=== PATIENT | female | born 1940 | race Caucasian/White ===

== ENCOUNTER 2017-01-07 13:38 | Observation (INO) | payer MEDICARE, OTHER ==
[~2017-01-07] VITALS: Ht 165.1 cm; Wt 66.5 kg
--- NOTE | ~2017-01-07 | CST ---
Cardiac Perfusion Imaging Demographics Patient Name ADRIA Bishop Gender Female Patient Number [id number] Race Visit Number [id number] Ethnicity Corporate ID Room Number 412 Accession Number [id number] Height 65 inches Date of 1940 Weight 146 pounds Age 76 year(s) BSA 1.73 m Referring Physician Silvia Rodríguez MD BMI 24.3 kg/m Devon Butler Interpreting Physician [facility] Date of study 01/08/2017 King Bandar Nieves MD Supervising MD/MLP King Bandar Nieves MD NM Technologist Tab Rodriguez Ordering Physician Stress Karla Hallman model technician Stress ECG Reading King Bandar Nieves MD Nurse Alfonzo Shanks Physician Tracee Lamar The procedure was explained in detail to the patient. Risks, complications and alternative treatments were reviewed. Written consent was obtained. Procedure Procedure Type: Nuclear Stress Test:Exercise, Cardiac Study SF Procedure Start time: 01/08/2017 08:00 Indications: Chest pain. Conclusions Summary Perfusion Images: The overall quality of the study is good. Left ventricular cavity is noted to be normal on the stress and rest studies. There is no evidence of abnormal lung activity. The right ventricle is not visualized and cannot be assessed. Stress SPECT images and Rest SPECT images demonstrate homogenous tracer distribution throughout the myocardium except for a decrease uptake in the area involving the apical wall consistent with soft tissue attenuation. Gated SPECT imaging reveals normal myocardial thickening and wall motion. The left ventricular ejection fraction was calculated to be 46%. Impression ECG portion of stress test is clinically negative for ischemia by diagnostic criteria. Myocardial perfusion imaging is normal. The apical wall matched defect is consistent with soft tissue attenuation. Overall left ventricular systolic function was normal without regional wall motion abnormalities. There are no previous studies for comparison . The patient went into atrial fib during the test which reproduced her symptoms and appears to be the cause of the symptoms. Stress Protocols Resting ECG Normal sinus rhythm. Nonspecific ST-T wave changes. Resting HR:72 bpm Resting BP:158/80 mmHg Stress Protocol:Exercise Predicted HR: 145 bpm Test duration:06:00 min ECG Findings Normal sinus rhythm. Nonspecific ST-T wave changes. Atrial fibrillation. Complications Procedure complication: None. Stress Interpretation Appropriate hemodynamic response to exercise. No significant ST-T wave changes with exercise. EKG portion is negative for ischemia by diagnostic criteria. The [place] Treadmill score was 6 .This corresponds to a low risk stress test. Imaging Results Summed scores - Summed stress score: 1 - Summed rest score: 0 - Summed difference score: 1 Stress ejection Ejection fraction:46 % EDV :114 ml ESV :62 ml Stroke volume :52 ml LV mass :131 gr Imaging Protocols Rest Stress Isotope:Tc99m Myoview IV Isotope: Tc99m Myoview IV Isotope dose:10.5 mCi Isotope dose:31.9 mCi Date:01/08/2017 06:30 Date:01/08/2017 08:00 Technique: SPECT Technique: Gated Supine SPECT Supine IV remains in place after procedure. Scan Time:45-60 minutes post Scan Time:45-60 minutes post injection injection Procedure Medications - Metaprolol I.V. 2.5 mg. - Metaprolol I.V. 2.5 mg. Medications administered per verbal order and read back to physician prior to administration. Medical History Admission Data Admission date: 01/07/2017 Admission Time: 13:38 Hospital Status: Inpatient. Signatures
--- NOTE | ~2017-01-07 | ECH ---
Transthoracic Echocardiography Report (TTE) Demographics Patient Name JESUS COVINGTON Date of Study 01/07/2017 Patient Number [id number] Visit Number [id number] Date of 1940 Room Number 412 Accession Number [id number] Gender Female Age 76 year(s) Referring Silvia Rodríguez MD Melter Supervisor Oxygen Furnace Zully James [facility] Physician Devon Butler Physician Interpreting Silvia Rodríguez MD Uniformer Physician Supervising Ordering Physician Devon Butler MD/P Nurse Stress Garnett Mechanic Conclusions Summary Technically fair exam. The estimated left ventricular ejection fraction is 60-65%. The left atrium is moderately dilated by LA volume index measurement. Mild-moderate mitral regurgitation by color Doppler. There is mild aortic regurgitation by color Doppler. . Mild tricuspid regurgitation by color Doppler. Estimated pulmonary pressures within normal limits. Mild pulmonic valve regurgitation by color Doppler. Procedure Type of Study TTE procedure Procedure Date Date: 01/07/2017 Start: 03:21 PM Technical Quality: Adequate visualization Indications:Chest pain and Dyspnea. Additional Indications:EKG changes Appropriate Use Criteria: 9 Height: 65 inches Weight: 146 pounds BSA: 1.73 m Rhythm: NSR HR: 67 bpm BP: 142/54 mmHg M-Mode/2D Measurements LV Diastolic Dimension: 5.15 cm LV Systolic Dimension: 3.82 cm LV Septum Diastolic: 0.64 cm LV PW Diastolic: 0.68 cm AO Root Dimension: 2.82 cm Cardiac Output: 2.15 l/min LA Dimension: 3.78 cm Cardiac Index: 1.24 l/min*m LA volume index: 47 ml/m LVOT: 1.62 cm RV Base: 3.18 cm LVOT VTI: 15.57 cm RV Mid: 2.02 cm LV Stroke volume: 32.08 ml RV Length: 5.27 cm LV Stroke volume index: 18.54 ml/m TAPSE: 1.55 cm TDI-S': 0.9 cm/s Doppler Measurements AV Peak Velocity: 1.08 m/s MV Peak E-Wave: 0.73 m/s AV Peak Gradient: 4.67 mmHg MV Peak A-Wave: 0.35 m/s AV Mean Gradient: 2.87 mmHg MV E/A Ratio: 2.09 LVOT Peak Velocity: 0.72 m/s MV P1/2t: 59.3 msec AV Area (Continuity):1.39 cm AV P1/2t: 553.7 msec MV Deceleration Time: 204.5 msec TR Velocity:2.51 m/s MV Area (PHT): 3.71 cm TR Gradient:25.11 mmHg PV Peak Velocity: 0.66 m/s Estimated RAP:5 mmHg PV Peak Gradient: 1.72 mmHg Estimated RVSP: 30 mmHg Estimated PASP: 30.11 mmHg RA Area: 14.86 cm Findings Left Ventricle The left ventricle is normal in size . Diastolic assessment reveals normal relaxation. Right Ventricle Normal right ventricle structure and function. Left Atrium The left atrium is moderately dilated by LA volume index measurement. Right Atrium Normal right atrial size. Mitral Valve Mild thickening of the mitral valve leaflets. Mild mitral annular calcification. Mild-moderate mitral regurgitation by color Doppler. Aortic Valve The aortic valve is mildly sclerotic. There is mild aortic regurgitation by color Doppler. Tricuspid Valve Normal appearing tricuspid valve. Mild tricuspid regurgitation by color Doppler. Estimated pulmonary pressures within normal limits. Pulmonic Valve Normal pulmonic valve structure and function. Mild pulmonic valve regurgitation by color Doppler. Pericardial Effusion No evidence of pericardial effusion. Miscellaneous Visualized portions of the aortic root and ascending aorta appear normal in size. Pleural Effusion No evidence of pleural effusion. Contractility Score LV regional wall motion:(0-Non visualized 1-Normal 2-Hypokinesis 3-Akinesis 4-Dyskinesis 5-Aneurysm) Signature
[2017-01-09] MEDS ORDERED: LIPITOR DPS20 MG PO (16:57)
[2017-01-09] MEDS ORDERED: COUMADIN5 MG PO (16:57)
[2017-01-09] MEDS ORDERED: CALTRATE-600 D600 MG PO (16:58)
[2017-01-09] MEDS ORDERED: COUMADIN7.5 MG PO (16:58)
[2017-01-09] MEDS ORDERED: OMEGA-3 DPS1000 MG PO (16:58)
[2017-01-09] MEDS ORDERED: METOPROLOL TART25 MG PO (16:59)
[2017-01-09] MEDS ORDERED: ASA CHILDREN'S81 MG PO (16:59)
[2017-01-09] MEDS ORDERED: THERA1 EACH PO (16:59)
[2017-01-09] MEDS ORDERED: TAMBOCOR100 MG PO (17:00)
--- NOTE | 2017-01-14 08:14 | HP ---
ADMIT: 01/07/2017 RM/LOC: 412 [facility] MR#: [id number] [address] [address] JESUS COVINGTON [address] [place] [address] History and Physical SEX: F AGE: 76 : 1940 DATE OF SERVICE: CHIEF COMPLAINT: Shortness of breath. HISTORY OF PRESENT ILLNESS: Leena is a very pleasant, 76-year-old female, who presented to my clinic today with the above complaints. The patient states that over the last month, she has been having increasing shortness of breath. She states that this started on the day when she was outside and gardening. She felt like she was very short of breath, tightness in her chest and she could not breathe. She has had a few more episodes like this lasting for 30 to 60 minutes at a time. She states that she goes inside and she breathes in some steam and that seems to help her symptoms. She has no history of asthma. She has no allergy-like symptoms at this time. She does endorse that she feels quite short of breath. Denies any chest pain. No nausea or vomiting. She does also note, however, she used to be an avid walker on her treadmill, but up to a month ago she had to stop this as she was becoming more short of breath and winded on her treadmill. She does note family history in her dad with heart disease. The patient is a nonsmoker. She has never had symptoms like this in the past. The patient had workup in my clinic with thoughts of potentially treating for respiratory issues and getting outpatient echo with stress test. However, she had an EKG done in the clinic, which showed significant T-wave inversions in the lateral leads. She had an EKG in 2014, which did not have this. Given these findings, she was admitted for further workup, management, and expedited cardiology evaluation. 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 MEDICATIONS: Include: 1. Atorvastatin 20 mg at bedtime. 2. Calcium 600 mg daily. 3. Fish oil 1200 mg daily. 4. Warfarin 5 mg on Saturday and and 7.5 mg on other days. ALLERGIES: NORFLEX. SOCIAL HISTORY: She does not smoke. Occasional alcohol use. No other drug use. Daily coffee consumption. She lives with her spouse. 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 Her daughter, Melinda Duvall, was here with her in clinic today. She is a full code. FAMILY HISTORY: Significant for heart disease in her father. REVIEW OF SYSTEMS: A 10-point review of systems obtained, per HPI otherwise negative. ADMIT: 01/07/2017 RM/LOC: 412 [facility] MR#: [id number] [address] [place] [id number] JESUS COVINGTON [address] [place] [address] History and Physical SEX: F AGE: 76 : 1940 PHYSICAL EXAMINATION: VITAL SIGNS: Blood pressure 124/60, pulse 68, respirations 16, and temperature afebrile at 98% room air. GENERAL: Alert and oriented x3. Does not appear in acute distress. HEENT: Pupils equal, round, and reactive. Extraocular muscles intact. Throat clear. Trachea is midline. HEART: Regular rate and rhythm. No murmurs. LUNGS: Clear to auscultation bilaterally with no wheezes or crackles. ABDOMEN: Soft, nontender, and nondistended. No organomegaly. EXTREMITIES: Without any significant edema. NEUROLOGIC: Cranial nerves II through XII are grossly intact. No focal deficits. LABORATORY DATA: BMP was normal with a creatinine of 0.95, potassium 4.5, sodium of 141. Her CK was 58. Her troponin was normal. Protime was 3.08. ASSESSMENT: Today, EKG was with multiple lateral leads with T-wave inversions. These are new from last EKG on February 21, 2015. ASSESSMENT/PLAN: 1. Dyspnea with possible acute coronary syndrome/anginal chest pains. 2. Abnormal EKG with new T-wave inversions lateral leads. 3. Hyperlipidemia. 4. History of stroke, on chronic Coumadin. 5. Osteoporosis with history of compression fractures. PLAN: We will admit the patient OPO for an expedited cardiac workup. Given her EKG findings, I think she should have Cardiology evaluation. Unable to get in their clinic today, but with EKG changes, we will rule out with serial enzymes and likely stress test in the morning versus cardiac catheterization. We will obtain echo. Last echo in 2013 was normal. Any changes will likely go straight to catheterization. I discussed the patient with Dr. Marcos Vega. He has agreed to see the patient over at the hospital. Discussed plan of care with the patient and her daughter, Melinda, and they are in agreement with this as well. The patient is a full code. Luke Osorio MD/ charbel JOB #: [id number] CC: Luke Osorio, Attending Physician Luke Osorio, Family Physician
--- NOTE | 2017-01-18 14:31 | CO ---
ADMIT: 01/07/2017 RM/LOC: 412 [facility] MR#: [id number] [address] [address] JESUS MENDOZA [address] [place] [address] Consultation SEX: F AGE: 76 : 1940 DATE OF CONSULTATION: 01/07/2017 ATTENDING PHYSICIAN: Luke Osorio CONSULTING PHYSICIAN: Jorge Vega MD REASON FOR CONSULTATION: Shortness of breath, abnormal EKG, and chest pain. HISTORY OF PRESENT ILLNESS: Ms. Mendoza is a 76-year-old white female who presented to her primary care physician's office today. We are asked to consult on at the request of Dr. Osorio for this above-mentioned problems. She noted ever since working out in the yard a few weeks ago, where she had an episode of some midsternal discomfort, tightness, and some shortness of breath. Since then, she has been waking up in the morning short of breath with a little bit of chest discomfort. She has not been walking on the treadmill like she normally does. She denies any orthopnea or PND. She denies any lower extremity edema, fever, chills, cough, or cold symptoms. She denies any weight gain or weight loss, nausea, or vomiting. PAST MEDICAL HISTORY: Includes: 1. Aortic insufficiency. 2. History of breast cancer. CURRENT MEDICATIONS: Include: 1. ProAir HFA. 2. Singulair 10 mg. 3. Coumadin as directed for history of prior TIA. 4. Atorvastatin 20 mg a day. 5. Aspirin 81 mg a day. ALLERGIES: INCLUDE NORFLEX. FAMILY HISTORY: Father with COPD and heart failure. No premature coronary disease. SOCIAL HISTORY: She is . She is fairly active. She states she walks on the treadmill. She is a nonsmoker and nondrinker. REVIEW OF SYSTEMS: A full 10-point review of systems was obtained and deemed to be negative except for the pertinently dictated positives in the HPI. PHYSICAL EXAMINATION: VITAL SIGNS: Stable. Her weight is unmeasured at this point in time. GENERAL: She is a pleasant, well-nourished, well-developed white female, in no acute distress. Alert and oriented x3. NECK: Shows brisk carotid upstrokes. No JVD or bruit. CHEST: Clear. HEART: Regular with soft systolic ejection murmur at the base. ABDOMEN: Soft. ADMIT: 01/07/2017 RM/LOC: 412 [facility] MR#: [id number] [address] [address] JESUS MENDOZA [address] [place] [address] Consultation SEX: F AGE: 76 : 1940 EXTREMITIES: Show no cyanosis, clubbing, or edema. MUSCULOSKELETAL: Normal. SKIN: Normal. NEUROLOGIC: Normal. She is alert and oriented x3. LABORATORY AND ANCILLARY DATA: Currently pending except for the EKG that shows T-wave inversion in her lateral leads. ASSESSMENT AND PLAN: 1. Shortness of breath. 2. Chest pain. 3. Aortic insufficiency. 4. Breast cancer history. 5. Abnormal electrocardiogram. She did notice symptoms after working in the yard last week, somewhat suspicious. The EKG does show questionable ischemic changes. We will trend the enzymes and her EKGs as well as check an echocardiogram. If any of these come back abnormal than the current EKG findings, we will proceed with cardiac catheterization. If they do remain normal, we will consider doing a stress test in the morning. Thank you for this consultation. Jorge Vega MD/ charbel JOB #: [id number] CC: Luke Osorio, Attending Physician Luke Osorio, Family Physician
== END 2017-01-08 12:50 | disposition home or self-care (01) ==
LOC: 4PCU 13:38
PROVIDERS: ADMIT Family Medicine
DX: R07.89 Other chest pain (principal); E78.5 Hyperlipidemia, unspecified; M80.00XA Age-related osteoporosis with current pathological fracture, unspecified site, initial encounter for fracture; Z79.899 Other long term (current) drug therapy; Z86.73 Personal history of transient ischemic attack (TIA), and cerebral infarction without residual deficits; Z88.8 Allergy status to other drugs, medicaments and biological substances; Z79.82 Long term (current) use of aspirin

== ENCOUNTER 2017-01-20 08:07 | Emergency (ER) | payer MEDICARE, OTHER ==
[~2017-01-20 08:07] MED LIST: ASA CHILDREN'S81 MG PO; CALTRATE-600 D600 MG PO; COUMADIN5 MG PO; COUMADIN7.5 MG PO; LIPITOR DPS20 MG PO; METOPROLOL TART25 MG PO; OMEGA-3 DPS1000 MG PO; TAMBOCOR100 MG PO; THERA1 EACH PO
--- NOTE | 2017-01-20 19:19 | ER ---
ADMIT: 01/20/2017 RM/LOC: ER [facility] MR#: [id number] [address] [facility] [address] [place], [place] [address] ADRIAJESUS Edna [address] [place] [address] Emergency Room Report SEX: F AGE: 76 : 1940 DATE: 01/20/2017 ADDENDUM: 76-year-old, white female coming in with shortness of breath. She has been having this on and off probably for about 30 days, worse at night. Previously in 2013, she was admitted for what appeared to be congestive heart failure, they did not think that what it was. CTA was done at that time which showed bilateral pleural effusions. We repeated the CTA today which showed increasing bilateral pleural effusions, atelectasis, as well as her BNP which had increased from that time as well. However, she had an echo recently that did not show a decreased ejection fraction. Her CBC, chemistry were otherwise negative except for the BNP. She also had an INR of 3.5, but she is on a beta- destiny for evidently atrial fibrillation for rate control. We did cut that in half from 80 b.i.d. to 40 b.i.d. after I spoke to Dr. Mckeon because her rate was in the 40s and 50s. DIAGNOSES: 1. Bilateral pleural effusions, unknown etiology. 2. Dyspnea. 3. Shortness of breath, rule out heart failure. 4. History of breast cancer that evidently had been stable as far as her treatment had gone. I refer you to Oncology notes. At this time, after speaking with Dr. Mckeon, we will discharge her. She is supposed to see Dr. Luke Osorio in the morning. CONDITION ON DISCHARGE: Good. Dimitris Lincoln MD/ charbel JOB #: [id number] CC: Dimitris Lincoln MD, Attending Physician Luke Osorio MD, Family Physician
== END 2017-01-20 11:55 | disposition home or self-care (01) ==
LOC: ER 08:07
DX: J90 Pleural effusion, not elsewhere classified (principal); R06.02 Shortness of breath; E78.5 Hyperlipidemia, unspecified; Z86.73 Personal history of transient ischemic attack (TIA), and cerebral infarction without residual deficits; Z85.3 Personal history of malignant neoplasm of breast; Z90.49 Acquired absence of other specified parts of digestive tract; Z79.01 Long term (current) use of anticoagulants; Z79.899 Other long term (current) drug therapy; Z88.8 Allergy status to other drugs, medicaments and biological substances

== ENCOUNTER → 2017-01-24 | Outpatient (CLI) | payer MEDICARE, OTHER | END | disposition home or self-care (01) | LOC: RAD.S 13:00 | PROC: 0W993ZZ Drainage of Right Pleural Cavity, Percutaneous Approach (ICD-10-PCS; principal; 2017-01-24) | DX: J90 Pleural effusion, not elsewhere classified (principal); R06.00 Dyspnea, unspecified ==

== ENCOUNTER → 2017-01-25 | Outpatient (CLI) | payer MEDICARE, OTHER | END | disposition home or self-care (01) | LOC: PTH.S 01-24 13:00 → RAD.S 12:54 | PROC: 0W9B3ZZ Drainage of Left Pleural Cavity, Percutaneous Approach (ICD-10-PCS; principal; 2017-01-25) | DX: J90 Pleural effusion, not elsewhere classified (principal) ==